=== PATIENT | male | born 1960 | race Caucasian/White ===

== ENCOUNTER 2022-09-29 17:25 | Emergency (ER) | payer OTHER, SELFPAY ==
[2022-09-29 17:35] VITALS: BP 158/79; PULSE 88; RESP 15; O2SAT 97; BMI 32.5
--- NOTE | 2022-09-29 17:44 | ED_ITS ---
HPI - Extremity Problem General: Chief complaint: Extremity Problem,Nontraumatic Stated complaint: Lower Extremity Weeping Time Seen by Provider: 09/29/22 17:31 Source: patient and EMS Mode of arrival: EMS Limitations: no limitations History of Present Illness: 62-year-old male who is here and states he has been having chronic swelling to his lower extremities for over a year now. He states that swelling discontinues it worse and I start have some weeping and redness. He denies any chest pain denies any shortness of breath. He states he is never seen anyone for this in the past. He denies any pain denies any fever Associated symptoms: Reports rash; Deny chest pain or fever(s) Review of Systems Const: Denies: fever(s) or chills Eyes: Denies: eye discomfort ENMT: Denies: throat pain or dental pain Card: Denies: chest pain Resp: Denies: dyspnea GI: Denies: abdominal pain, nausea, vomiting or diarrhea : Reports: urinary frequency Musc: Reports: extremity swelling; Denies: neck pain or back pain Skin/Breast: Reports: rash and erythema Neuro: Denies: headache(s) Psych: Denies: depression [place]/Lymph: Denies: easy bruising All/Imm: Denies: urticaria PFSH ED PFSH: Medical History (Updated 09/29/22 @ 19:31 by Ginny Donohue MD) Hypertension Social History (Updated 09/29/22 @ 17:45 by Ginny Donohue MD) Substance/Drug Use: never Physical Exam Const: COMMON NORMALS: no acute distress, patient oriented x3 and healthy appearing HENMT: COMMON NORMALS: normocephalic and atraumatic HEAD & SCALP: normocephalic and atraumatic Eye: COMMON NORMALS: conjunctivae normal CONJUNCTIVA: Yes conjunctivae normal Neck/C-Spine: COMMON NORMALS: full ROM and supple Chest: COMMONS NORMALS: normal inspection of the chest and normal palpation of entire chest wall Resp: COMMON NORMALS: normal respiratory effort, No retractions, No use of accessory muscles and clear to auscultation bilaterally AUSCULTATION: clear to auscultation bilaterally Cardio: COMMON NORMALS: regular rate, regular rhythm and No murmurs present (Cardio) RATE: regular rate RHYTHM: regular rhythm GI: COMMON NORMALS: Normal to inspection, nondistended, normoactive bowel sounds present, Soft to palpation, non-tender and no masses PALPATION: Yes Soft to palpation Extremity: OTHER: swelling to bilateral ext with erythema, distal pulses intact no ulcers Neuro: COMMON NORMALS: patient oriented x3, moves all extremities and no focal motor deficits Psych: COMMON NORMALS: mental status grossly normal, Normal thought process present and cooperative THOUGHT PROCESS: Normal thought process present Skin: COMMON NORMALS: no rashes or lesions noted and no wounds GENERAL SKIN EXAM: no rashes or lesions noted Course Vital Signs: Vital signs: Vital Signs Pulse Rate 86 09/29/22 19:07 Respiratory Rate 16 09/29/22 19:07 Blood Pressure 141/68 09/29/22 19:07 Pulse Oximetry 93 09/29/22 19:07 Oxygen Delivery Me thod Room Air 09/29/22 17:35 MDM - Extremity (Nontraumatic) Medical Decision Making Patient presents here with lower extremity edema its been chronic in nature he also has a stasis dermatitis with mild cellulitis we will start him on antibiotics Lasix we will get him follow-up with wound care he also needs a PCP he is return if worsening he understands agrees to plan. Medical Records I reviewed the patient's medical records. Lab Data I reviewed the patient's lab results. 09/29/22 18:05 09/29/22 18:05 Laboratory Results WBC 9.8 10^3/uL (4.0-10.0) 09/29/22 18:05 RBC 4.16 10^6/uL (4.1-5.3) 09/29/22 18:05 Hgb 13.8 g/dL (11.7-16.6) 09/29/22 18:05 Hct 40.0 % (42.0-52.0) L 09/29/22 18:05 MCV 96.2 fl (80-94) H 09/29/22 18:05 MCH 33.2 pg (28.0-34.0) 09/29/22 18:05 MCHC 34.5 g/dL (30.0-36.0) 09/29/22 18:05 RDW 13.2 % (12.1-15.1) 09/29/22 18:05 Plt Count 172 10^3/cmm (130-400) 09/29/22 18:05 MPV 9.4 fL (7.4-10.4) 09/29/22 18:05 Neut % (Auto) 67.0 % 09/29/22 18:05 Lymph % (Auto) 16.1 % 09/29/22 18:05 [place] % (Auto) 11.1 % 09/29/22 18:05 Eos % (Auto) 4.6 % 09/29/22 18:05 Baso % (Auto) 0.6 % 09/29/22 18:05 Neut # (Auto) 6.56 10^3/uL (1.8-7.7) 09/29/22 18:05 Lymph # (Auto) 1.6 10^3/uL (0.8-4.8) 09/29/22 18:05 [place] # (Auto) 1.1 10^3/uL (0.2-0.9) H 09/29/22 18:05 Eos # (Auto) 0.5 10^3/uL (0.0-0.8) 09/29/22 18:05 Baso # (Auto) 0.1 10^3/uL (0.0-0.1) 09/29/22 18:05 Nucleated RBC % (auto) 0 % 09/29/22 18:05 Nucleated RBCs # 0.0 /100WBC 09/29/22 18:05 Sodium 131 mmol/L (136-145) L 09/29/22 18:05 Potassium 3.3 mmol/L (3.5-5.1) L 09/29/22 18:05 Chloride 92 mmol/L (98-107) L 09/29/22 18:05 Carbon Dioxide 25 mmol/L (22-29) 09/29/22 18:05 Anion Gap 17.3 (5-19) 09/29/22 18:05 BUN 6 mg/dL (8-23) L 09/29/22 18:05 Creatinine 0.6 mg/dL (0.7-1.2) L 09/29/22 18:05 GFR Calculation 137.0 mL/min (90-130) H 09/29/22 18:05 Glucose 101 mg/dL (65-115) 09/29/22 18:05 Calculated Osmolality 270 mOsm/kg (285-295) L 09/29/22 18:05 Calcium 9.0 mg/dL (8.5-10.5) 09/29/22 18:05 Total Bilirubin 0.5 mg/dL (0.15-1.2) 09/29/22 18:05 AST 41 U/L (0-40) H 09/29/22 18:05 ALT 34 U/L (0-41) 09/29/22 18:05 Alkaline Phosphatase 111 U/L (40-130) 09/29/22 18:05 NT-Pro-B Natriuret Pep 166 pg/mL (0-125) H 09/29/22 18:05 Total Protein 8.0 g/dL (6.6-8.7) 09/29/22 18:05 Albumin 4.4 g/dL (3.5-5.2) 09/29/22 18:05 Globulin 3.6 g/dL (1.3-4.6) 09/29/22 18:05 Discharge Plan Discharge Patient Disposition: Home Clinical Impression: Lower extremity edema, Stasis dermatitis Prescriptions: New Bactrim DS 800-160 mg tablet 1 tab PO BID 10 Days Qty: 20 0RF Lasix 40 mg tablet 40 mg PO QAM Qty: 30 0RF Discharge Orders: Discharge ED (Routine); Ordered 09/29/22 Ordered By: Ginny Donohue Referrals: WOUND CARE CLINIC, [Staff Physician] - 1-3 days Discharge Diet: Advance as tolerated Discharge Activity: Resume usual activity Patient Instructions: Stasis Dermatitis (ED), Edema (ED) Coding Level of Care Code ED Applied Psychology Professor for Carlos Muniz
[2022-09-29 18:19] VITALS: BP 145/64; PULSE 88; O2SAT 96
[2022-09-29 18:24] LABS: Basophils # 0.1 10^3/uL (0.0-0.1); Basophils % 0.6 %; Eosinophils # 0.5 10^3/uL (0.0-0.8); Eosinophils % 4.6 %; Hemoglobin 13.8 g/dL (11.7-16.6); Lymphocytes # 1.6 10^3/uL (0.8-4.8); Lymphocytes % 16.1 %; Mean Corpuscular HGB Conc 34.5 g/dL (30.0-36.0); Mean Corpuscular Hemoglobin 33.2 pg (28.0-34.0); Mean Corpuscular Volume 96.2 fl (80-94); Mean Platelet Volume 9.4 fL (7.4-10.4); Monocytes # 1.1 10^3/uL (0.2-0.9); Monocytes % 11.1 %; Neutrophils # 6.56 10^3/uL (1.8-7.7); Nucleated Red Blood Cells % 0 %; Platelet Count 172 10^3/cmm (130-400); Red Blood Count 4.16 10^6/uL (4.1-5.3); Red Cell Distribution Width 13.2 % (12.1-15.1); White Blood Count 9.8 10^3/uL (4.0-10.0)
[2022-09-29] MEDS: FUROsemide 10 mg/mL SDV 4mL 40 MG IVP (18:34)
[2022-09-29 19:07] VITALS: BP 141/68; PULSE 86; RESP 16; O2SAT 93
[2022-09-29 19:15] LABS: Alanine Aminotransferase 34 U/L (0-41); Albumin Level 4.4 g/dL (3.5-5.2); Alkaline Phosphatase 111 U/L (40-130); Anion Gap 17.3 (5-19); Aspartate Amino Transferase 41 U/L (0-40); Blood Urea Nitrogen 6 mg/dL (8-23); Carbon Dioxide 25 mmol/L (22-29); Chloride 92 mmol/L (98-107); Globulin 3.6 g/dL (1.3-4.6); Glucose 101 mg/dL (65-115); NT Pro B Type Natriuretic Pept 166 pg/mL (0-125); Osmolality Calculated 270 mOsm/kg (285-295); Potassium 3.3 mmol/L (3.5-5.1); Sodium 131 mmol/L (136-145); Total Bilirubin 0.5 mg/dL (0.15-1.2)
[2022-09-29 19:18] LABS: Creatinine Clr Calc Pharmacy 150.5681
[2022-09-29 19:43] VITALS: BP 131/70; PULSE 85; RESP 16; O2SAT 96
--- NOTE | 2022-09-30 08:12 | DCPLANNER ---
Addendum entered by Vanessa Bowman 10/01/22 07:43: wind power project manager received the following message from the Wound Care clinic regarding follow up appointment: See below! :) On 09/30/22 @ 09:52 Tawny Pratt Wrote To Wound Front Office Pt stated he has no transportation and cant come to an appt. Thank you I told the pt to [facility]. Original Note: wind power project manager had message to schedule a follow up appointment for patient with wound care. wind power project manager sent patients information to the front office staff at wound care. Patients information will be printed and reviewed. Clinic will call patient with appointment information.
--- NOTE | 2022-09-30 12:37 | DCPLANNER ---
manager registration had message to speak with patient about getting established with a primary care physician. Patient sees Dr. Regina Bowman at the [facility].
== END 2022-09-29 19:44 | disposition home or self-care (01) ==
PROVIDERS: Emergency Provider Emergency Medicine; PCP Family Medicine
DX: I87.2 Venous insufficiency (chronic) (peripheral) (principal); I10 Essential (primary) hypertension; R60.0 Localized edema
CPT/HCPCS: 36415; 80053; 83880; 85025; 96374; 99284; J1940

== ENCOUNTER 2022-10-08 15:23 | Emergency (ER) | payer OTHER, SELFPAY ==
[2022-10-08 15:39] VITALS: BP 125/60; PULSE 85; RESP 20; TEMP 37.2; O2SAT 97
--- NOTE | 2022-10-08 15:46 | USCV_ITS ---
Pedro Edwards Age: 62 Gender: M : 1960 Exam Date: 10/08/2022 16:24 Ordering Phys: Ethan Cardona DO Technologist: JENIFER [place] [facility] [place]: Leg swelling, redness HISTORY: Lower extremity swelling. Lower extremity edema. PROCEDURES: Venous duplex imaging was performed in bilateral lower extremities. The following venous structures were evaluated: common femoral vein, profunda vein, proximal portion of the greater saphenous vein, superficial femoral vein, and the popliteal vein. In addition, the posterior tibial and peroneal trunk were evaluated. Serial compression, augmentation maneuvers, and spectral Doppler flow evaluation were performed. FINDINGS: Normal 2-D Doppler and augmentation and compressibility throughout the lower extremity venous structures. Additional imaging through the proximal calf veins also reveals no thrombus. Limited evaluation of the greater saphenous vein is patent with no thrombus. Bilateral subcutaneous edema. CONCLUSIONS No DVT bilateral lower extremities. Dr. Shaneka Santiago DO (Electronically Signed) Final Date: 11 Oct 2022 07:23 S
--- NOTE | 2022-10-08 15:51 | ECG_ITS ---
[facility] Test Date: 2022-10-08 Pat Name: Pedro Edwards Department: Room: Gender: Male Reproduction Production Manager: : 1960 Requested By: Ethan Green Order Number: [id number] Merly MD: Mauri Valladares M.D. Measurements Intervals [place] Rate: 77 P: -3 ND: 176 QRS: 32 QRSD: 95 T: 11 QT: 404 QTc: 458 Interpretive Statements SINUS RHYTHM POSSIBLE RIGHT VENTRICULAR CONDUCTION DELAY [RSR (QR) IN V1/V2] No previous ECG available for comparison Electronically Signed On 10-09-2022 16:34:14 CDT by Mauri Valladares M.D. [id number]
--- NOTE | 2022-10-08 16:11 | ED_ITS ---
HPI - Recheck/Abnormal Lab/Rx General: Chief Complaint: Recheck/Abnormal Lab/Rx Stated Complaint: Abnormal Labs Time Seen by Provider: 10/08/22 15:28 Source: patient Mode of arrival: ambulatory History of Present Illness: 62-year-old male presents emergency room directed here from [facility] they report that he had an elevated D-dimer and wanted to be evaluated for DVT. He is not on any oral anticoagulation he has been having significant swelling of his lower extremities with redness and erythema he currently is on oral antibiotics Rocio he has serous drainage from some skin splitting because of the degree of swelling in his legs he has not had any orthopnea denies any chest pain or significant shortness of breath. Review of Systems Const: Denies: fever(s), chills, body aches, change in appetite, fatigue or malaise ENMT: Denies: throat pain, ear or mastoid pain, nasal discharge or nasal congestion Card: Reports: edema and swelling of feet/ankles; Denies: chest pain, dyspnea on exertion or orthopnea Resp: Denies: dyspnea, productive cough or non-productive cough GI: Denies: abdominal pain, nausea, vomiting, hematemesis, coffee ground emesis, diarrhea, constipation, bloating, hematochezia or melena : Denies: flank pain, dysuria, urinary frequency or urinary urgency Skin/Breast: Reports: erythema, skin tenderness and sores PFSH ED PFSH: Medical History Hypertension Social History Substance/Drug Use: never Physical Exam Const: COMMON NORMALS: no acute distress GENERAL APPEARANCE: cooperative and comfortable ORIENTATION/CONSCIOUSNESS: Yes awake, Yes oriented to person, Yes oriented to place and Yes oriented to time HENMT: COMMON NORMALS: normocephalic, atraumatic and hearing grossly normal bilaterally HEAD & SCALP: normocephalic and atraumatic Resp: COMMON NORMALS: normal respiratory effort, No retractions, No use of accessory muscles and clear to auscultation bilaterally AUSCULTATION: clear to auscultation bilaterally Cardio: COMMON NORMALS: regular rate, regular rhythm and No murmurs present (Cardio) RATE: regular rate RHYTHM: regular rhythm GI: COMMON NORMALS: Soft to palpation and No hepatosplenomegaly present AUSCULTATION: Yes normoactive bowel sounds PALPATION: Yes Soft to palpation, No Tenderness to palpation present (GI), No Guarding due to palpation present (GI) and Yes No hepatosplenomegaly present Extremity: OTHER: 3+ edema lower extremities with skin breakdown serous drainage and redness that is circumferential no induration of the skin. Moderately tender to palpation. Neuro: SENSORIUM/ORIENTATION: Yes oriented to person, Yes oriented to place and Yes oriented to time Skin: COMMON NORMALS: no rashes or lesions noted GENERAL SKIN EXAM: no rashes or lesions noted Course Vital Signs: Vital signs: Vital Signs Temperature 99.0 F 10/08/22 15:39 Pulse Rate 85 10/08/22 15:39 Respiratory Rate 20 H 10/08/22 15:39 Blood Pressure 132/59 10/08/22 16:30 Pulse Oximetry 94 10/08/22 16:30 Oxygen Delivery Me thod Room Air 10/08/22 15:39 MDM - Recheck/Abnormal Lab/Rx Medical Decision Making Chronic venous stasis edema and venous stasis ulcers that are being [facility] with [facility] plan as well as oral antibiotics. They do look red and inflamed at this time his white count is only slightly above 10 he is not having any fevers. The report was he had an elevated D-dimer venous duplex lower extremities negative for any DVT. We will discharge patient home. Continue previously prescribed medications and follow-[facility] with the [facility] as [facility]. Return to emergency room as change or problems. Medical Records I reviewed the patient's medical records. Lab Data I reviewed the patient's lab results. 10/08/22 16:24 10/08/22 16:24 Laboratory Results WBC 10.9 10^3/uL (4.0-10.0) H 10/08/22 16:24 RBC 4.27 10^6/uL (4.1-5.3) 10/08/22 16:24 Hgb 14.1 g/dL (11.7-16.6) 10/08/22 16:24 Hct 43.3 % (42.0-52.0) 10/08/22 16:24 MCV 101.4 fl (80-94) H 10/08/22 16:24 MCH 33.0 pg (28.0-34.0) 10/08/22 16:24 MCHC 32.6 g/dL (30.0-36.0) 10/08/22 16:24 RDW 13.1 % (12.1-15.1) 10/08/22 16:24 Plt Count 189 10^3/cmm (130-400) 10/08/22 16:24 MPV 9.5 fL (7.4-10.4) 10/08/22 16:24 Neut % (Auto) 65.9 % 10/08/22 16:24 Lymph % (Auto) 16.9 % 10/08/22 16:24 [place] % (Auto) 9.3 % 10/08/22 16:24 Eos % (Auto) 6.3 % 10/08/22 16:24 Baso % (Auto) 0.8 % 10/08/22 16:24 Neut # (Auto) 7.18 10^3/uL (1.8-7.7) 10/08/22 16:24 Lymph # (Auto) 1.8 10^3/uL (0.8-4.8) 10/08/22 16:24 [place] # (Auto) 1.0 10^3/uL (0.2-0.9) H 10/08/22 16:24 Eos # (Auto) 0.7 10^3/uL (0.0-0.8) 10/08/22 16:24 Baso # (Auto) 0.1 10^3/uL (0.0-0.1) 10/08/22 16:24 Nucleated RBC % (auto) 0 % 10/08/22 16:24 Nucleated RBCs # 0.0 /100WBC 10/08/22 16:24 Discharge Plan Discharge Patient Disposition: Home Clinical Impression: Venous stasis ulcer, Edema of lower extremity, D-dimer, elevated Condition: Stable Prescriptions: No Action sulfamethoxazole-trimethoprim [Bactrim DS] 800-160 mg tablet 1 tab PO BID 10 Days Qty: 20 0RF furosemide [Lasix] 40 mg tablet 40 mg PO QAM Qty: 30 0RF atorvastatin 80 mg tablet 40 mg PO QAM metoprolol succinate 50 mg tablet extended release 24 hr 25 mg PO QAM Vitamin B-12 1,000 mcg Tablet 1,000 mcg PO DAILY PRN (Reason: unknown) Vitamin C 500 mg Tablet 500 mg PO DAILY PRN (Reason: unknown) amlodipine 10 mg tablet 10 mg PO QAM hydrochlorothiazide 25 mg tablet 12.5 mg PO QAM Discharge Orders: Discharge ED (Routine); Ordered 10/08/22 Ordered By: Ethan Cardona Referrals: Regina Bowman MD [Primary Care Provider] - Patient Instructions: Opioid Safety, Pain Management Activity Restrictions/Additional Instructions: You were seen today for swelling in your legs and an elevated D-dimer at the [facility]. Venous duplex ultrasound of the lower extremities showed no evidence of clot. Continue medications previously prescribed for your legs at the [facility] and continue their wound care plan. You can return the emergency room for further problems. Coding Level of Care Code ED Supervisor Fine Grading for Carlos Muniz
[2022-10-08 16:30] VITALS: BP 132/59; O2SAT 94
[2022-10-08 16:41] LABS: Basophils # 0.1 10^3/uL (0.0-0.1); Basophils % 0.8 %; Eosinophils # 0.7 10^3/uL (0.0-0.8); Eosinophils % 6.3 %; Hematocrit 43.3 % (42.0-52.0); Hemoglobin 14.1 g/dL (11.7-16.6); Lymphocytes # 1.8 10^3/uL (0.8-4.8); Lymphocytes % 16.9 %; Mean Corpuscular HGB Conc 32.6 g/dL (30.0-36.0); Mean Corpuscular Volume 101.4 fl (80-94); Mean Platelet Volume 9.5 fL (7.4-10.4); Monocytes % 9.3 %; Neutrophils # 7.18 10^3/uL (1.8-7.7); Neutrophils % 65.9 %; Nucleated Red Blood Cells % 0 %; Platelet Count 189 10^3/cmm (130-400); Red Blood Count 4.27 10^6/uL (4.1-5.3); Red Cell Distribution Width 13.1 % (12.1-15.1); White Blood Count 10.9 10^3/uL (4.0-10.0)
[2022-10-08 16:55] VITALS: BP 140/70; PULSE 75; O2SAT 95
[2022-10-08 17:03] LABS: Alanine Aminotransferase 24 U/L (0-41); Albumin Level 3.9 g/dL (3.5-5.2); Alkaline Phosphatase 105 U/L (40-130); Anion Gap 18.1 (5-19); Aspartate Amino Transferase 30 U/L (0-40); Blood Urea Nitrogen 6 mg/dL (8-23); Calcium 8.6 mg/dL (8.5-10.5); Carbon Dioxide 23 mmol/L (22-29); Chloride 86 mmol/L (98-107); Creatinine Clr Calc Pharmacy 115.4146; Glomerular Filtration Rate 98.3 mL/min (90-130); Glucose 82 mg/dL (65-115); Osmolality Calculated 255 mOsm/kg (285-295); Potassium 3.1 mmol/L (3.5-5.1); Sodium 124 mmol/L (136-145); Total Bilirubin 0.4 mg/dL (0.15-1.2); Total Protein 6.9 g/dL (6.6-8.7)
== END 2022-10-08 16:55 | disposition home or self-care (01) ==
PROVIDERS: Emergency Provider Family Medicine; PCP Family Medicine
DX: I83.009 Varicose veins of unspecified lower extremity with ulcer of unspecified site (principal); L97.911 Non-pressure chronic ulcer of unspecified part of right lower leg limited to breakdown of skin; L97.921 Non-pressure chronic ulcer of unspecified part of left lower leg limited to breakdown of skin; M79.89 Other specified soft tissue disorders; R60.0 Localized edema; R79.1 Abnormal coagulation profile
CPT/HCPCS: 36415; 80053; 85025; 93005; 93970; 99285

== ENCOUNTER 2022-11-18 11:32 | Emergency (ER) | payer OTHER, SELFPAY ==
[2022-11-18 11:46] VITALS: BP 140/86; PULSE 94; RESP 18; TEMP 36.6; O2SAT 97; BMI 30.2
--- NOTE | 2022-11-18 11:53 | XR_ITS ---
WS: [id number] Portable AP upright chest, 11/18/2022 Clinical Data: dyspnea/cough Comparison: None. Findings: No nodules, masses or effusions are seen. The heart is normal. The pulmonary vascularity is not increased. No pneumonia or pneumothorax is seen. XR/XR chest 1V portable [id number] Impression: Negative chest.
[2022-11-18 12:30] LABS: Basophils # 0.1 10^3/uL (0.0-0.1); Basophils % 0.9 %; Eosinophils # 1.5 10^3/uL (0.0-0.8); Eosinophils % 14.4 %; Hemoglobin 15.7 g/dL (11.7-16.6); Lymphocytes # 1.2 10^3/uL (0.8-4.8); Lymphocytes % 11.7 %; Mean Corpuscular HGB Conc 34.9 g/dL (30.0-36.0); Mean Corpuscular Hemoglobin 32.6 pg (28.0-34.0); Mean Corpuscular Volume 93.6 fl (80-94); Mean Platelet Volume 9.3 fL (7.4-10.4); Monocytes # 0.9 10^3/uL (0.2-0.9); Monocytes % 9.2 %; Neutrophils # 6.43 10^3/uL (1.8-7.7); Neutrophils % 62.8 %; Nucleated Red Blood Cells % 0 %; Platelet Count 230 10^3/cmm (130-400); Red Blood Count 4.81 10^6/uL (4.1-5.3); Red Cell Distribution Width 14.7 % (12.1-15.1); White Blood Count 10.2 10^3/uL (4.0-10.0)
--- NOTE | 2022-11-18 12:46 | W.ED.EXTPRO ---
HPI - Extremity Problem General: Chief complaint: Extremity Problem,Nontraumatic Stated complaint: Swelling to both legs Time Seen by Provider: 11/18/22 11:52 Source: patient Mode of arrival: ambulatory History of Present Illness: 62-year-old male presents emergency room with complaints of chronic swelling of the lower extremities. He was here twice in September for this he is usually been followed at the [facility]. He was on some Augmentin for a time he had allergic reaction to that and was switched to doxycycline. He felt like it improved and then worsened again. He continues to take his Lasix on a regular basis. He states he is lost around 40 pounds from the diuretics. He is concerned about chronic venous stasis changes to his lower extremities and a rash that has developed a dry scaling rash on the lower extremities and some patching rash more proximal. He has not seen dermatology for this. He denies any shortness of breath or chest pain. He has previously been evaluated for DVT which was negative. MD Complaint: extremity swelling Onset (ago): month(s) Location: left, right and lower extremity Relieving factors: nothing Exacerbating factors: nothing Associated symptoms: Reports rash (Lower extremities extending proximally); Deny arthralgias, chest pain, fever(s), myalgias or short of breath Review of Systems Const: Denies: fever(s) ENMT: Denies: throat pain, ear or mastoid pain, nasal discharge or nasal congestion Card: Reports: edema and swelling of feet/ankles; Denies: chest pain Resp: Denies: dyspnea, productive cough or non-productive cough GI: Denies: abdominal pain, nausea or vomiting : Denies: flank pain, dysuria, urinary frequency or urinary urgency Skin/Breast: Reports: rash (Lower extremities extending proximally) [facility] ED PFSH: Medical History (Updated 11/18/22 @ 14:56 by Ethan Cardona DO) Chronic venous stasis dermatitis Hypertension Social History Substance/Drug Use: never Physical Exam Const: COMMON NORMALS: no acute distress GENERAL APPEARANCE: cooperative and comfortable ORIENTATION/CONSCIOUSNESS: Yes awake, Yes oriented to person, Yes oriented to place and Yes oriented to time HENMT: COMMON NORMALS: normocephalic, atraumatic and hearing grossly normal bilaterally HEAD & SCALP: normocephalic and atraumatic Resp: COMMON NORMALS: normal respiratory effort, No retractions, No use of accessory muscles and clear to auscultation bilaterally AUSCULTATION: clear to auscultation bilaterally Cardio: COMMON NORMALS: regular rate, regular rhythm and No murmurs present (Cardio) RATE: regular rate RHYTHM: regular rhythm GI: COMMON NORMALS: Soft to palpation and No hepatosplenomegaly present AUSCULTATION: Yes normoactive bowel sounds PALPATION: Yes Soft to palpation, No Tenderness to palpation present (GI), No Guarding due to palpation present (GI) and Yes No hepatosplenomegaly present Extremity: OTHER: Bilaterally chronic edema changes with scaling and chronic venous stasis changes to the skin. Approximately he has a scaling rash with satellite lesions up to the mid thigh anteriorly. There is no sign of cellulitis no acute purulent drainage there is some serous drainage where some of the scaling skin is sloughed off in the anterior tibia particularly on the left. Neuro: SENSORIUM/ORIENTATION: Yes oriented to person, Yes oriented to place and Yes oriented to time Skin: COMMON NORMALS: no rashes or lesions noted GENERAL SKIN EXAM: no rashes or lesions noted Course Vital Signs: Vital signs: Vital Signs Temperature 97.9 F 11/18/22 11:46 Pulse Rate 90 11/18/22 13:32 Respiratory Rate 18 11/18/22 11:46 Blood Pressure 141/97 11/18/22 13:32 Pulse Oximetry 99 11/18/22 13:32 Oxygen Delivery Me thod Room Air 11/18/22 11:46 MDM - Extremity (Nontraumatic) Medical Decision Making No acute changes at this time. This been a chronic issue. We did offer him Lasix to try to further diurese decrease the swelling is not a lot of skin tension right now he reports significant weight loss from diuresis which I think is beneficial. At this point recommend he follow-up with his primary care doctor to look up for referral to wound care and/or dermatology. No acute emergent condition at this time. On exam there is no indication of DVT he has been evaluated for this in the past. Medical Records I reviewed the patient's medical records. Lab Data I reviewed the patient's lab results. 11/18/22 12:23 11/18/22 12:23 Radiology Impressions Chest X-Ray 11/18/22 11:53 Impression: Negative chest. Laboratory Results WBC 10.2 10^3/uL (4.0-10.0) H 11/18/22 12: RBC 4.81 10^6/uL (4.1-5.3) 11/18/22 12: Hgb 15.7 g/dL (11.7-16.6) 11/18/22 12: Hct 45.0 % (42.0-52.0) 11/18/22 12:23 MCV 93.6 fl (80-94) 11/18/22 12:23 MCH 32.6 pg (28.0-34.0) 11/18/22 12: MCHC 34.9 g/dL (30.0-36.0) 11/18/22 12: RDW 14.7 % (12.1-15.1) 11/18/22 12: Plt Count 230 10^3/cmm (130-400) 11/18/22 12: MPV 9.3 fL (7.4-10.4) 11/18/22 12:23 Neut % (Auto) 62.8 % 11/18/22 12:23 Lymph % (Auto) 11.7 % 11/18/22 12:23 [place] % (Auto) 9.2 % 11/18/22 12: Eos % (Auto) 14.4 % 11/18/22 12: Baso % (Auto) 0.9 % 11/18/22 12: Neut # (Auto) 6.43 10^3/uL (1.8-7.7) 11/18/22 12:23 Lymph # (Auto) 1.2 10^3/uL (0.8-4.8) 11/18/22 12:23 [place] # (Auto) 0.9 10^3/uL (0.2-0.9) 11/18/22 12: Eos # (Auto) 1.5 10^3/uL (0.0-0.8) H 11/18/22 12:23 Baso # (Auto) 0.1 10^3/uL (0.0-0.1) 11/18/22 12:23 Nucleated RBC % (auto) 0 % 11/18/22 12:23 Nucleated RBCs # 0.0 /100WBC 11/18/22 12:23 Sodium 128 mmol/L (136-145) L 11/18/22 12:23 Potassium 4.6 mmol/L (3.5-5.1) 11/18/22 12:23 Chloride 90 mmol/L (98-107) L 11/18/22 12:23 Carbon Dioxide 23 mmol/L (22-29) 11/18/22 12:23 Anion Gap 19.6 (5-19) H 11/18/22 12:23 BUN 7 mg/dL (8-23) L 11/18/22 12:23 Creatinine 0.7 mg/dL (0.7-1.2) 11/18/22 12:23 GFR Calculation 114.6 mL/min (90-130) 11/18/22 12:23 Glucose 103 mg/dL (65-115) 11/18/22 12:23 Calculated Osmolality 264 mOsm/kg (285-295) L 11/18/22 12:23 Calcium 9.6 mg/dL (8.5-10.5) 11/18/22 12:23 Total Bilirubin 0.5 mg/dL (0.15-1.2) 11/18/22 12:23 AST 41 U/L (0-40) H 11/18/22 12:23 ALT 33 U/L (0-41) 11/18/22 12:23 Alkaline Phosphatase 122 U/L (40-130) 11/18/22 12:23 NT-Pro-B Natriuret Pep 46 pg/mL (0-125) 11/18/22 12:23 Total Protein 7.8 g/dL (6.6-8.7) 11/18/22 12:23 Albumin 4.2 g/dL (3.5-5.2) 11/18/22 12:23 Globulin 3.6 g/dL (1.3-4.6) 11/18/22 12:23 Urine Color Aviva (Yellow) 11/18/22 13:04 Urine Appearance Sl hazy (CLEAR) A 11/18/22 13:04 Urine pH 6 (5-7) 11/18/22 13:04 Ur Specific [place] 1.020 (1.005-1.030) 11/18/22 13:04 Urine Protein Neg (Negative) 11/18/22 13:04 Urine Glucose (UA) Norm (Normal) 11/18/22 13:04 Urine Ketones 1+ (Negative) H 11/18/22 13:04 Urine Blood Neg (Negative) 11/18/22 13:04 Urine Nitrate Negative (Negative) 11/18/22 13:04 Urine Bilirubin Neg (Negative) 11/18/22 13:04 Urine Urobilinogen Norm mg/dL (Negative) 11/18/22 13:04 Ur Leukocyte Esterase Negative (Negative) 11/18/22 13:04 Urine RBC 0-4 /hpf (0-2) H 11/18/22 13:04 Urine WBC 0-4 /hpf (0-5) H 11/18/22 13:04 Ur Squamous Epith Cells 0-4 /hpf (0-5) H 11/18/22 13:04 Amorphous Sediment Not Reportable 11/18/22 13:04 Urine Bacteria None /hpf (NONE) 11/18/22 13:04 Hyaline Casts 5-10 /lpf H 11/18/22 13:04 Urine Mucus Trace /hpf 11/18/22 13:04 Discharge Plan Discharge Patient Disposition: Home Clinical Impression: Chronic venous stasis dermatitis, Bilateral edema of lower extremity Condition: Stable Prescriptions: No Action furosemide [Lasix] 40 mg tablet 40 mg PO QAM Qty: 30 0RF atorvastatin 80 mg tablet 40 mg PO QAM metoprolol succinate 50 mg tablet extended release 24 hr 25 mg PO QAM Vitamin B-12 1,000 mcg Tablet 1,000 mcg PO DAILY PRN (Reason: unknown) Vitamin C 500 mg Tablet 500 mg PO DAILY PRN (Reason: unknown) amlodipine 10 mg tablet 10 mg PO QAM hydrochlorothiazide 25 mg tablet 12.5 mg PO QAM Discharge Orders: Discharge ED (Routine); Ordered 11/18/22 Ordered By: Ethan Cardona Referrals: Regina Bowman MD [Primary Care Provider] - Patient Instructions: Opioid Safety, Pain Management Coding Level of Care Code ED Nuclear Medicine Pet Ct Technologist for Carlos Muniz
[2022-11-18 12:57] LABS: Alanine Aminotransferase 33 U/L (0-41); Albumin Level 4.2 g/dL (3.5-5.2); Alkaline Phosphatase 122 U/L (40-130); Anion Gap 19.6 (5-19); Aspartate Amino Transferase 41 U/L (0-40); Blood Urea Nitrogen 7 mg/dL (8-23); Calcium 9.6 mg/dL (8.5-10.5); Carbon Dioxide 23 mmol/L (22-29); Chloride 90 mmol/L (98-107); Globulin 3.6 g/dL (1.3-4.6); Glomerular Filtration Rate 114.6 mL/min (90-130); Glucose 103 mg/dL (65-115); NT Pro B Type Natriuretic Pept 46 pg/mL (0-125); Osmolality Calculated 264 mOsm/kg (285-295); Potassium 4.6 mmol/L (3.5-5.1); Sodium 128 mmol/L (136-145); Total Bilirubin 0.5 mg/dL (0.15-1.2); Total Protein 7.8 g/dL (6.6-8.7)
[2022-11-18 13:05] VITALS: BP 141/97; PULSE 90; O2SAT 99
[2022-11-18 13:32] VITALS: BP 141/97; PULSE 90; O2SAT 99
[2022-11-18 13:32] LABS: Urine Color Amber (Yellow)
[2022-11-18 13:33] LABS: Add Urine Microscopic? YES; Bilirubin Urine Neg (Negative); Blood Urine Neg (Negative); Glucose Urine UA Norm (Normal); Ketones Urine 1+ (Negative); Leukocyte Esterase Urine Negative (Negative); Nitrate Urine Negative (Negative); Protein Urine Neg (Negative); Urobilinogen Urine Norm (Negative); pH Urine 6 (5-7)
[2022-11-18 13:48] LABS: Urine Appearance SL Hazy (CLEAR)
[2022-11-18 13:59] LABS: Add Urine Culture? No; Mucus Urine TRACE /hpf; RBC Urine 0-4 /hpf (0-2); Squamous Epithelial Cell Urine 0-4 /hpf (0-5); WBC Urine 0-4 /hpf (0-5)
== END 2022-11-18 13:32 | disposition home or self-care (01) ==
PROVIDERS: Emergency Provider Family Medicine; PCP Family Medicine
DX: I87.8 Other specified disorders of veins (principal); R60.0 Localized edema; I10 Essential (primary) hypertension
CPT/HCPCS: 36415; 71045; 80053; 81001; 83880; 85025; 99285

== ENCOUNTER → 2022-11-29 13:03 | Outpatient (BNVA) | payer OTHER, SELFPAY | PROVIDERS: PCP Family Medicine; Visit Provider Thoracic Surgery (Cardiothoracic Vascular Surgery) | DX: I96 Gangrene, not elsewhere classified (principal); L97.822 Non-pressure chronic ulcer of other part of left lower leg with fat layer exposed; L97.812 Non-pressure chronic ulcer of other part of right lower leg with fat layer exposed; L03.115 Cellulitis of right lower limb; L03.116 Cellulitis of left lower limb | CPT/HCPCS: 97597; 97598; 99213 ==

== ENCOUNTER → 2022-12-23 11:26 | Outpatient (BNVA) | payer OTHER, SELFPAY | PROVIDERS: PCP Family Medicine; Referring Provider Family Medicine; Visit Provider Dermatology | DX: L27.0 Generalized skin eruption due to drugs and medicaments taken internally (principal); I87.2 Venous insufficiency (chronic) (peripheral); R60.0 Localized edema | CPT/HCPCS: 99204 ==

== ENCOUNTER → 2022-12-24 10:44 | Outpatient (BNVA) | payer OTHER, SELFPAY | PROVIDERS: PCP Family Medicine; Visit Provider Thoracic Surgery (Cardiothoracic Vascular Surgery) | DX: Z09 Encounter for follow-up examination after completed treatment for conditions other than malignant neoplasm (principal) | CPT/HCPCS: 99212 ==

== ENCOUNTER → 2022-12-28 14:13 | Outpatient (BNVA) | payer OTHER, SELFPAY | PROVIDERS: PCP Family Medicine; Visit Provider Thoracic Surgery (Cardiothoracic Vascular Surgery) | DX: R60.0 Localized edema (principal) | CPT/HCPCS: 99202 ==

== ENCOUNTER 2023-01-18 12:59 | Outpatient (CLI) | payer OTHER, SELFPAY ==
--- NOTE | 2023-01-18 13:00 | USCV_ITS ---
JerryPedro seth Age: 62 Gender: M : 1960 Exam Date: 01/18/2023 13:41 Ordering Phys: Pedro Loredo MD (Andy) ([email or web address]) Technologist: DIEGO [place] [facility] [place] H[place]ORY: Lower extremity swelling. Lower extremity edema. Lower extremity pain. PROCEDURES: Venous duplex imaging was performed in bilateral lower extremities. The following venous structures were evaluated: common femoral vein, profunda vein, proximal portion of the greater saphenous vein, superficial femoral vein, and the popliteal vein. Serial compression, augmentation maneuvers, and spectral Doppler flow evaluation were performed. An evaluation for venous insufficiency was also completed. FINDINGS: Non pulsatile flow pattern. The veins were found to be easily compressible with spontaneous blood flow. The greater saphenous vein on the right side was found to have significant reflux of 1009 ms at the proximal segment which was found to be at the depth of 1.27 cm and measured 0.44 cm in diameter No significant venous reflux were noted in any of the other segments on the right or left side. Multiple echolucent areas in the subcutaneous plane bilaterally below the knee CONCLUSIONS 1. No evidence of deep vein thrombosis in any of the above-mentioned veins 2. Significant venous reflux of greater than 500 ms was noted at the proximal greater saphenous vein segment on the right side. The reflux time, venous dimension and the depth from the surface are as mentioned above. 3. No significant venous reflux on the left side 4. Features of fluid retention/edema in the below-knee area bilaterally Dr Mauri Valladares MD [facility] (Electronically Signed) Final Date: 18 January 2023 18:02 S
== END 2023-01-18 13:00 | disposition home or self-care (01) ==
PROVIDERS: PCP Family Medicine; Visit Provider Thoracic Surgery (Cardiothoracic Vascular Surgery)
DX: M79.605 Pain in left leg (principal)
CPT/HCPCS: 93970